=== PATIENT | male | born 1985 | race Caucasian/White ===

== ENCOUNTER 2023-09-25 16:58 | Emergency (ER) | payer MEDICAID ==
[~2023-09-25] VITALS: Ht 182.9 cm; Wt 86.2 kg
[2023-09-25 17:31] VITALS: BP 121/77; PULSE 110; RESP 18; TEMP 97.3; O2SAT 99
[2023-09-25] MEDS ORDERED: PENI500T20 PO (18:24)
[2023-09-25] MEDS: PENICILLIN V POTASSIUM 250 MG TAB PO ONE (18:33)
[2023-09-25 18:46] VITALS: BP 129/92; PULSE 87; RESP 16; TEMP 98; O2SAT 99
== END 2023-09-25 18:46 | disposition home or self-care (01) ==
LOC: MED 16:58
DX: K04.7 Periapical abscess without sinus (principal); Z79.899 Other long term (current) drug therapy
CPT/HCPCS: 99283

== ENCOUNTER 2023-11-05 13:10 | Emergency (ER) | payer MEDICAID ==
[~2023-11-05] VITALS: Ht 182.9 cm; Wt 86.2 kg
[~2023-11-05 13:10] MED LIST: PENI500T20 PO
[2023-11-05 13:20] VITALS: BP 138/96; PULSE 102; RESP 18; TEMP 98; O2SAT 100
[2023-11-05] MEDS ORDERED: CEPH-588 PO (14:06)
[2023-11-05] MEDS: cephALEXin 500 MG CAP PO ONE (14:22)
[2023-11-05 14:32] VITALS: BP 138/96; PULSE 102; RESP 18; TEMP 36.66960; O2SAT 100
== END 2023-11-05 14:32 | disposition home or self-care (01) ==
LOC: MED 13:10
DX: L03.113 Cellulitis of right upper limb (principal); Z79.2 Long term (current) use of antibiotics
CPT/HCPCS: 73080; 99283